=== PATIENT | female | born 1955 | race African-American/Black ===

== ENCOUNTER 2018-02-20 15:28 | Emergency (ER) | payer OTHER, MEDICAID ==
[~2018-02-20] VITALS: Ht 170.2 cm; Wt 125.0 kg
[2018-02-20] MEDS ORDERED: IPRATROPIUM BROMIDE (0.02%) 0.5MG/2.5ML NEB HHN STA (17:57)
[2018-02-20] MEDS ORDERED: METHYLPREDNISOLONE SOD SUCC 125 MG/2 ML VIAL IV STA (17:57)
[2018-02-20] MEDS ORDERED: ALBUTEROL (0.083%) 2.5MG/3ML NEB HHN STA (17:57)
[2018-02-20] MEDS ORDERED: ACETAMINOPHEN 325MG TABLET PO ONE (18:00)
[2018-02-20] MEDS ORDERED: ENALAPRIL 2.5MG/2ML VIAL 2ML IV ONE (18:15)
[2018-02-20 18:36] LABS: HEMATOCRIT. 39.3 % (36.0-48.0); HEMOGLOBIN. 13.6 g/dL (12.0-16.0); MEAN CORPUSCULAR HEMOGLOBIN 27.3 pg (28.0-32.0); MEAN CORPUSCULAR VOLUME 78.8 fL (81.0-99.0); MEAN PLATELET VOLUME 9.2 fl (7.4-10.4); PLATELET 269 x1000/uL (130-400); RED BLOOD CELL COUNT 4.98 mill/uL (4.2-5.4); RED CELL DISTRIBUTION WIDTH 15.5 % (11.6-14.6)
[2018-02-20 18:42] LABS: CHLORIDE 105 mEq/L (98-107)
[2018-02-20 19:06] LABS: PLATELET ESTIMATE NORMAL
[2018-02-20] MEDS ORDERED: OSELTAMIVIR 75MG CAPSULE PO ONE (19:15)
[2018-02-20 19:49] VITALS: BP 137/70
== END 2018-02-20 19:53 | disposition home or self-care (01) ==
LOC: ER 15:28
DX: J10.1 Influenza due to other identified influenza virus with other respiratory manifestations (principal); J45.901 Unspecified asthma with (acute) exacerbation; E66.01 Morbid (severe) obesity due to excess calories; R03.0 Elevated blood-pressure reading, without diagnosis of hypertension; Z68.41 Body mass index [BMI] 40.0-44.9, adult
CPT/HCPCS: 36415; 71045; 80048; 84484; 85025; 87040; 87804; 93005; 94640; 96374; 99284; J2930; J3490; J7611